=== PATIENT | female | born 1995 | race Caucasian/White ===

== ENCOUNTER → 2017-08-11 11:38 | Outpatient (CLI) | payer OTHER, MEDICAID, SELFPAY ==
[2017-08-11 12:15] LABS: Add Manual Diff / Slide Review NO; Basophils Percent Auto 0.5 % (0-2); Eosinophils Percent Auto 1.2 % (2-4); Hematocrit 37.7 % (36-46); Hemoglobin 12.8 g/dL (12.0-16.0); Lymphocytes Percent Auto 32.4 % (25-40); Mean Corpuscular Volume 88.1 fL (80-100); Monocytes Percent Auto 9.4 % (3-14); Neutrophils Absolute Auto 5300 /uL (3000-5900); Neutrophils Percent Auto 56.5 % (50-75); Platelet Count 280 X10^3/uL (150-400); Red Blood Cell Count 4.28 X10^6/uL (4.0-5.2); White Blood Cell Count 9.4 X10^3/uL (4.5-11.0)
[2017-08-11 12:18] LABS: Appearance Urine UA CLEAR; Bilirubin Urine UA NEGATIVE (NEGATIVE); Color Urine UA YELLOW; Glucose Urine UA NEGATIVE (Normal); Ketones Urine UA NEGATIVE (NEGATIVE); Leukocyte Esterase Urine UA NEGATIVE (NEGATIVE); Nitrite Urine UA Negative (Negative); Occult Blood Urine UA NEGATIVE (Negative); Protein Urine UA NEGATIVE (Negative); Urobilinogen Urine UA 0.2 E.U./dL (0.2); pH Urine UA 6.5 (4.5-8.0)
[2017-08-11 12:24] LABS: Glucose 87 mg/dL (70-100)
[2017-08-11 12:41] LABS: Hemoglobin A1C% w Est Avg Glu 4.8 % (4.0-6.0)
[2017-08-11 15:42] LABS: Hepatitis B Surface Antigen NEGATIVE s/c (NEGATIVE)
[2017-08-11 15:59] LABS: HIV 1 and 2 Antibody NEGATIVE (NEGATIVE); Hep C Virus Ab w/Reflex Quant NEGATIVE s/c (NEGATIVE)
[2017-08-12 13:49] LABS: HSV 2 IGG AB < 0.90 index (< 0.90)
[2017-08-18 13:59] LABS: Rapid Plasma Reagin NON-REACTIVE
== END ==
PROVIDERS: PCP Specialist
DX: Z3A.01 Less than 8 weeks gestation of pregnancy (principal)
CPT/HCPCS: 36415; 80055; 81003; 82947; 83036; 86695; 86696; 86703; 86787; 86803; 86850; 86900; 86901; 87086

== ENCOUNTER → 2017-10-05 15:09 | Outpatient (CLI) | payer OTHER, MEDICAID, SELFPAY ==
[2017-10-09 09:43] LABS: Sequential Screen 1st Trimeste FINAL PENDING
== END ==
PROVIDERS: Family Provider Specialist; PCP Specialist
DX: Z3A.12 12 weeks gestation of pregnancy (principal); Z36.0 Encounter for antenatal screening for chromosomal anomalies
CPT/HCPCS: 36415; 84163; 84702; 87086

== ENCOUNTER → 2017-10-31 13:53 | Outpatient (CLI) | payer OTHER, MEDICAID, SELFPAY ==
[2017-11-06 13:09] LABS: Sequential Screen 2nd Trimeste SCREEN NEGATIVE
== END ==
PROVIDERS: Family Provider Specialist
DX: Z34.82 Encounter for supervision of other normal pregnancy, second trimester (principal)
CPT/HCPCS: 36415; 86336

== ENCOUNTER → 2018-03-01 08:15 | Outpatient (CLI) | payer OTHER, MEDICAID, SELFPAY ==
[2018-03-01 10:06] LABS: Hematocrit 34.8 % (36-46); Hemoglobin 11.2 g/dL (12.0-16.0)
[2018-03-01 10:34] LABS: GTT (PREG) 1 Hour PP 50gm Dose 135 mg/dL (76-139)
== END ==
PROVIDERS: Visit Provider Specialist
DX: Z34.82 Encounter for supervision of other normal pregnancy, second trimester (principal)
CPT/HCPCS: 36415; 82950; 85014; 85018

== ENCOUNTER → 2018-03-13 13:54 | Outpatient (CLI) | payer OTHER, MEDICAID, SELFPAY ==
[2018-03-14 15:47] LABS: Strep Grp B PCR POS for Grp B Strep
== END ==
PROVIDERS: Family Provider Specialist
DX: Z34.93 Encounter for supervision of normal pregnancy, unspecified, third trimester (principal); Z3A.35 35 weeks gestation of pregnancy
CPT/HCPCS: 87653

== ENCOUNTER 2018-04-09 02:30 | Inpatient (IN) | payer OTHER, MEDICAID, SELFPAY ==
[2018-04-09] MEDS: PENICILLIN G POTASSIUM 5,000,000 UNIT in DEXTROSE 5% IN WATER 250 ML IV (03:00)
[2018-04-09] MEDS: LACTATED RINGERS 1,000 ML 100 ML IV ×3 (03:00→14:08)
[2018-04-09 03:38] VITALS: BP 121/83
[2018-04-09 03:45] LABS: Add Manual Diff / Slide Review NO; Basophils Absolute Auto 0 /uL (0-100); Basophils Percent Auto 0.3 % (0-2); Eosinophils Absolute Auto 200 /uL (0-450); Eosinophils Percent Auto 1.5 % (2-4); Hematocrit 35.7 % (36-46); Hemoglobin 11.4 g/dL (12.0-16.0); Lymphocytes Absolute Auto 3300 /uL (1100-4500); Lymphocytes Percent Auto 26.5 % (25-40); Mean Corpuscular HGB Conc 31.8 % (30-36); Mean Corpuscular Hemoglobin 26.3 PG (26-34); Mean Corpuscular Volume 82.8 fL (80-100); Monocytes Absolute Auto 1400 /uL (0-900); Monocytes Percent Auto 10.8 % (3-14); Neutrophils Absolute Auto 7700 /uL (1500-7000); Neutrophils Percent Auto 60.9 % (50-75); Platelet Count 190 X10^3/uL (150-400); Red Blood Cell Count 4.32 X10^6/uL (4.0-5.2); Red Cell Distribution Width 16.5 % (11.6-14.8); White Blood Cell Count 12.6 X10^3/uL (4.5-11.0)
--- NOTE | 2018-04-09 07:54 | PM.OBHP.1 ---
OB HPI Date/Time Date of admission: 04/09/18 Date Patient Seen: 04/09/18 Time Patient Seen: 07:55 History of Present Condition Chief complaint: admit for labor : 2 Para: 1 Estimated Date of Delivery: 04/13/18 Estimated Gestational Age (weeks): 39 Narrative: Darion Ely is a 22 year old female two para one who presents with spontaneous rupture of membranes and irregular contractions. Her past medical history, review of systems and antepartum record are detailed below. Indications Other reason(s) for admission: Spontaneous rupture membranes Early labor History of Present care: good care Dating criteria: LMP confirmed by 2nd trimester US Ultrasounds: normal 1st trimester US and normal mid trimester US Obstetrical complications: none Medical complications: none Narrative: The patient is a 22-year-old white female two para one with a history of a 37 and half week delivery in her last with a 36 hr labor. She delivered a 7 lb 9 oz infant. Her 1st infant has brain damage secondary to a swimming pool accident. The patient's weight went from 169 lb to 204 lb for 35 lb weight gain during the . Her blood pressures remained normotensive. Her urines remained negative for glucose and protein. She had adequate fundal growth. An ultrasound done on April 03 showed an estimated weight of 4000 g. the patient now presents with spontaneous rupture membranes an indolent contractions. Preadmission Labs Blood type: A (+) positive -: Antibody screen: negative, GBS status: positive, HBsAG: negative, HIV: negative, HSV 1: negative, HSV 2: positive and RPR/VDLR: negative -: Chlamydia screen: detected (Negative) and Gonorrhea screen: detected (Negative) -: Rubella: immune and Varicella: immune HCT: 34.5 HCAB: negative PAP: Normal Sequential screen: Negative Evaluation Evaluation Laboratory results: Laboratory Tests 04/09/18 04/09/18 03:00 03:00 WBC 12.6 H RBC 4.32 Hgb 11.4 L Hct 35.7 L MCV 82.8 MCH 26.3 MCHC 31.8 RDW 16.5 H Plt Count 190 Neut % (Auto) 60.9 Lymph % (Auto) 26.5 [place] % (Auto) 10.8 Eos % (Auto) 1.5 L Baso % (Auto) 0.3 Neut # (Auto) 7700 H Lymph # (Auto) 3300 [place] # (Auto) 1400 H Eos # (Auto) 200 Baso # (Auto) 0 Blood Type A Positive Antibody Screen Negative [facility] Medical History Vaginal delivery (Resolved 03/12/15) Social History Smoking Status: Never smoker Social History Smoking Status: Never smoker Meds Home Medications Medication Instructions Recorded Confirmed Type 1 tab PO DAILY 08/11/17 04/09/18 History vitamin,calcium,qaofadtu-awdp-zkkjr acid tablet nitrofurantoin macrocrystal 100 mg 100 mg PO BID #10 cap 10/20/17 04/09/18 Rx capsule albuterol sulfate HFA 90 1 puff INHALATION Q6H PRN #18 gram 04/03/18 04/09/18 Rx mcg/actuation aerosol inhaler Allergies Allergy/AdvReac Type Severity Reaction Status Date / Time No Known Drug Allergies Allergy Unknown Unverified 05/24/17 11:49 [NO KNOWN DRUG ALLERGIES] Review of Systems Review of Systems All systems reviewed & are unremarkable except as noted in HPI and below Exam Vital Signs (past 8 hours): - 04/09/18 03:38 Blood Pressure 121/83 Oxygen Delivery Method Room Air Const General: cooperative and healthy appearing [facility] Head: normal to inspection Ears: hearing grossly normal bilaterally Nose: external nose normal Face and sinus: normal facial exam Mouth: oral mucosae normal, lip normal, tongue normal and moist mucous membranes Teeth and gingiva: dentition normal Throat: posterior oropharynx normal Eyes General: appearance normal, both eyes and all related structures Neck Neck: normal visual inspection and full ROM Chest Chest: normal inspection of the chest and normal palpation of entire chest wall Breast inspection: normal inspection of the breasts and normal inspection of the axillae Breast Palpation: normal palpation of the breasts and normal palpation of the axillae Resp Effort & Inspection: normal respiratory effort Auscultation: clear to auscultation bilaterally Cardio Palpation: normal PMI Rate: regular rate Rhythm: regular rhythm Heart Sounds: S1 normal and S2 normal GI Inspection: normal to inspection Palpation: soft and no hepatosplenomegaly Percussion: normal to percussion Auscultation: normal bowel sounds External Female Exam: external appearance normal and normal appearance of the urethra Speculum Exam - Vagina: normal appearance of the vagina and normal vaginal discharge Manual OB Exam: dilated 2, effaced 75% and station -2 Uterus Location (Fundal Height): 40 Presentation: vertex Estimated Weight (lbs): 9 Amniotic Fluid: clear Back/Spine/Pelvis Thoracic/Lumbar Spine: thoracic and lumbar spine normal to inspection Skin General: no rashes or lesions noted Neuro General: alert, oriented x3, tone normal and moves all extremities Cognition: normal cognition Speech: speech normal Gait: normal gait Motor: muscle tone normal throughout Sensory Exam: no sensory deficits noted Extrem General: normal to inspection and normal exam except as noted Psych Appearance: grossly normal and well kempt Mental Status: mental status grossly normal Speech and Movement: speech and movement normal Objective Labs Result Diagrams: 04/09/18 03:00 Labs: Laboratory Results - last 24 hr 04/09/18 04/09/18 03:00 03:00 WBC 12.6 H RBC 4.32 Hgb 11.4 L Hct 35.7 L MCV 82.8 MCH 26.3 MCHC 31.8 RDW 16.5 H Plt Count 190 Neut % (Auto) 60.9 Lymph % (Auto) 26.5 [place] % (Auto) 10.8 Eos % (Auto) 1.5 L Baso % (Auto) 0.3 Neut # (Auto) 7700 H Lymph # (Auto) 3300 [place] # (Auto) 1400 H Eos # (Auto) 200 Baso # (Auto) 0 Blood Type A Positive Antibody Screen Negative Assessment and Plan (1) Term : Onset Date: ~04/09/18 Current visit: Yes Status: Acute Pitocin augmentation of labor (2) Rupture, membranes, premature: Onset Date: ~04/09/18 Current visit: Yes Status: Acute Pitocin induction of labor
[2018-04-09] MEDS: LACTATED RINGERS 1,000 ML 1000 ML IV (07:58)
[2018-04-09] MEDS: OXYTOCIN PREMIX 30 UNIT/500 ML PLAST..BAG IV (07:59)
[2018-04-09] MEDS: PENICILLIN G POTASSIUM 3,000,000 UNIT/50 ML FROZ.PIGGY 100 UNIT IV ×3 (08:01→15:56)
--- NOTE | 2018-04-09 08:08 | P.HPOB_ITS ---
OB HPI Date/Time Date of admission: 04/09/18 Date Patient Seen: 04/09/18 Time Patient Seen: 07:55 History of Present Condition Chief complaint: admit for labor : 2 Para: 1 Estimated Date of Delivery: 04/13/18 Estimated Gestational Age (weeks): 39 Narrative: Darion Ely is a 22 year old female two para one who presents with spontaneous rupture of membranes and irregular contractions. Her past medical history, review of systems and antepartum record are detailed below. Indications Other reason(s) for admission: Spontaneous rupture membranes Early labor History of Present care: good care Dating criteria: LMP confirmed by 2nd trimester US Ultrasounds: normal 1st trimester US and normal mid trimester US Obstetrical complications: none Medical complications: none Narrative: The patient is a 22-year-old white female two para one with a history of a 37 and half week delivery in her last with a 36 hr labor. She delivered a 7 lb 9 oz infant. Her 1st infant has brain damage secondary to a swimming pool accident. The patient's weight went from 169 lb to 204 lb for 35 lb weight gain during the . Her blood pressures remained normotensive. Her urines remained negative for glucose and protein. She had adequate fundal growth. An ultrasound done on April 03 showed an estimated weight of 4000 g. the patient now presents with spontaneous rupture membranes an indolent contractions. Preadmission Labs Blood type: A (+) positive -: Antibody screen: negative, GBS status: positive, HBsAG: negative, HIV: negative, HSV 1: negative, HSV 2: positive and RPR/VDLR: negative -: Chlamydia screen: detected (Negative) and Gonorrhea screen: detected (Negative) -: Rubella: immune and Varicella: immune HCT: 34.5 HCAB: negative PAP: Normal Sequential screen: Negative Evaluation Evaluation Laboratory results: Laboratory Tests 04/09/18 04/09/18 03:00 03:00 WBC 12.6 H RBC 4.32 Hgb 11.4 L Hct 35.7 L MCV 82.8 MCH 26.3 MCHC 31.8 RDW 16.5 H Plt Count 190 Neut % (Auto) 60.9 Lymph % (Auto) 26.5 [place] % (Auto) 10.8 Eos % (Auto) 1.5 L Baso % (Auto) 0.3 Neut # (Auto) 7700 H Lymph # (Auto) 3300 [place] # (Auto) 1400 H Eos # (Auto) 200 Baso # (Auto) 0 Blood Type A Positive Antibody Screen Negative [facility] Medical History Vaginal delivery (Resolved 03/12/15) Social History Smoking Status: Never smoker Social History Smoking Status: Never smoker Meds Home Medications Medication Instructions Recorded Confirmed Type 1 tab PO DAILY 08/11/17 04/09/18 History vitamin,calcium,xbqpducs-tyfh-hpzkx acid tablet nitrofurantoin macrocrystal 100 mg 100 mg PO BID #10 cap 10/20/17 04/09/18 Rx capsule albuterol sulfate HFA 90 1 puff INHALATION Q6H PRN #18 gram 04/03/18 04/09/18 Rx mcg/actuation aerosol inhaler Allergies Allergy/AdvReac Type Severity Reaction Status Date / Time No Known Drug Allergies Allergy Unknown Unverified 05/24/17 11:49 [NO KNOWN DRUG ALLERGIES] Review of Systems Review of Systems All systems reviewed & are unremarkable except as noted in HPI and below Exam Vital Signs (past 8 hours): - 04/09/18 03:38 Blood Pressure 121/83 Oxygen Delivery Method Room Air Const General: cooperative and healthy appearing [facility] Head: normal to inspection Ears: hearing grossly normal bilaterally Nose: external nose normal Face and sinus: normal facial exam Mouth: oral mucosae normal, lip normal, tongue normal and moist mucous membranes Teeth and gingiva: dentition normal Throat: posterior oropharynx normal Eyes General: appearance normal, both eyes and all related structures Neck Neck: normal visual inspection and full ROM Chest Chest: normal inspection of the chest and normal palpation of entire chest wall Breast inspection: normal inspection of the breasts and normal inspection of the axillae Breast Palpation: normal palpation of the breasts and normal palpation of the axillae Resp Effort & Inspection: normal respiratory effort Auscultation: clear to auscultation bilaterally Cardio Palpation: normal PMI Rate: regular rate Rhythm: regular rhythm Heart Sounds: S1 normal and S2 normal GI Inspection: normal to inspection Palpation: soft and no hepatosplenomegaly Percussion: normal to percussion Auscultation: normal bowel sounds External Female Exam: external appearance normal and normal appearance of the urethra Speculum Exam - Vagina: normal appearance of the vagina and normal vaginal discharge Manual OB Exam: dilated 2, effaced 75% and station -2 Uterus Location (Fundal Height): 40 Presentation: vertex Estimated Weight (lbs): 9 Amniotic Fluid: clear Back/Spine/Pelvis Thoracic/Lumbar Spine: thoracic and lumbar spine normal to inspection Skin General: no rashes or lesions noted Neuro General: alert, oriented x3, tone normal and moves all extremities Cognition: normal cognition Speech: speech normal Gait: normal gait Motor: muscle tone normal throughout Sensory Exam: no sensory deficits noted Extrem General: normal to inspection and normal exam except as noted Psych Appearance: grossly normal and well kempt Mental Status: mental status grossly normal Speech and Movement: speech and movement normal Objective Labs Result Diagrams: 04/09/18 03:00 Labs: Laboratory Results - last 24 hr 04/09/18 04/09/18 03:00 03:00 WBC 12.6 H RBC 4.32 Hgb 11.4 L Hct 35.7 L MCV 82.8 MCH 26.3 MCHC 31.8 RDW 16.5 H Plt Count 190 Neut % (Auto) 60.9 Lymph % (Auto) 26.5 [place] % (Auto) 10.8 Eos % (Auto) 1.5 L Baso % (Auto) 0.3 Neut # (Auto) 7700 H Lymph # (Auto) 3300 [place] # (Auto) 1400 H Eos # (Auto) 200 Baso # (Auto) 0 Blood Type A Positive Antibody Screen Negative Assessment and Plan (1) Term : Onset Date: ~04/09/18 Current visit: Yes Status: Acute Pitocin augmentation of labor (2) Rupture, membranes, premature: Onset Date: ~04/09/18 Current visit: Yes Status: Acute Pitocin induction of labor
[2018-04-09] MEDS: CALCIUM CARBONATE 500 MG TAB PO ×4 (10:52→15:52)
--- NOTE | 2018-04-09 17:15 | PM.OBPRVD ---
Events: Premature Rupture of Membrane Delivery date: 04/09/18 Intrapartal events: None Delivery augmentation: pitocin Delivery monitor: external FHT and external uterine Route of delivery: L&D Laceration Description: None Anesthesia type: Epidural Complications: n one Narrative: the patient is a22 who presented with SROM at 0230 hrs. Pitocin was begun for augmentation. Epidural was placed at 5 cm. Pt made good progess to complete and pushed with 2 contractions and delivered a liveborn male with scores of 8/9/ Placenta dilivered spontaneously/ Cord 3 vessels. NO cervical, vaginal, perineal or periuthreal tears. EBL 250 Plan for aftercare: routine
[2018-04-09] MEDS: IBUPROFEN 600 MG TABLET PO ×2 (17:35→21:42)
[2018-04-10] MEDS: IBUPROFEN 600 MG TABLET PO ×3 (03:40→17:24)
[2018-04-10 07:34] LABS: Hematocrit 32.2 % (36-46); Hemoglobin 10.5 g/dL (12.0-16.0)
--- NOTE | 2018-04-10 07:43 | PM.OBDS.1 ---
Discharge Providers Date of admission: 04/09/18 02:30 Primary care physician: Odilon Knott MD Consults: 04/09/18 17:33 Consult to Email Engineer Routine Comment: Discharge provider: Odilon Knott MD Discharge Date: 04/10/18 Summary Date Patient Seen: 04/10/18 Time Patient Seen: 07:44 Hospital Course: Patient is a 22-year-old white female two now para two with uneventful antepartum course. Patient presented with spontaneous rupture of membranes on the 09 of April. Pitocin was begun. Epidural was placed. The patient made good progress to complete and was delivered spontaneously of an 8 lb 14 oz live-born male infant with scores of nine at 1 min nine at 5 min in good condition. There were no cervical vaginal or perineal tears. Post delivery the patient has done well. She remains afebrile stable vital signs and has been progressively element and ambulated. She will be discharged home for follow-up in four weeks Peripartum Data Delivery Method: Natural Vaginal Laceration description: None complications: none Discharge Diagnosis (1) Term : Status: Acute (2) Rupture, membranes, premature: Status: Acute Status at Discharge Cognitive/behavioral status at discharge: Normal Functional status at discharge: independent ambulation Overall status at discharge: patient is back to baseline Time Spent with Patient Total time spent providing and/or coordinating discharge services: Less than 30 minutes Objective Labs Result Diagrams: 04/10/18 07:00 Labs: Laboratory Results - last 24 hr 04/10/18 07:00 Hgb 10.5 L Hct 32.2 L Discharge Plan Discharge Plan Patient Disposition: Home Discharge Med Rec/Prescriptions Prescriptions: New Dermoplast (with menthol) 20-0.5 % Aerosol 1 spray topical Q1HR PRN (Reason: perineal pain) Qty: 1 RF: 0 oxycodone-acetaminophen 5-325 mg Tablet 1 tab PO Q4HR Qty: 20 RF: 0 ibuprofen 600 mg Tablet 600 mg PO Q6HR PRN (Reason: Pain, Mild (1-3)) Qty: 20 RF: 0 Oxr-H-Ghhall Cream 1 applic topical PRN PRN (Reason: Tenderness) Qty: 1 RF: 0 Continued nitrofurantoin macrocrystal 100 mg capsule 100 mg PO BID Qty: 10 RF: 0 prenat.vits,tor,ghs-qmnu-ewgqs [ Vitamin] tablet 1 tab PO DAILY RF: 0 albuterol sulfate 90 mcg/actuation HFA aerosol inhaler 1 puff INHALATION Q6H PRN (Reason: shortness of breath or wheezing) Qty: 18 RF: 1 Follow up/Referrals: Odilon Knott MD [Primary Care Provider] - Provider Discharge Instructions Diet: Diet as Tolerated Activity: Up ad yue Skin/Wound/Dressing Care Skin care: Benzocaine spray Report to your healthcare provider any signs of infection, such as:: chills, fever, increased pain, unusual drainage and unusual redness Dressing: None Other wound treatment: None Discharge Data Primary Care Provider: Odilon Knott Attending Provider: Rosa M Dias Admit Date/Time: 04/09/18 02:30
--- NOTE | 2018-04-10 07:47 | P.DS_ITS ---
Discharge Providers Date of admission: 04/09/18 02:30 Primary care physician: Odilon Knott MD Consults: 04/09/18 17:33 Consult to Adult Education Professional Routine Comment: Discharge provider: Odilon Knott MD Discharge Date: 04/10/18 Summary Date Patient Seen: 04/10/18 Time Patient Seen: 07:44 Hospital Course: Patient is a 22-year-old white female two now para two with uneventful antepartum course. Patient presented with spontaneous rupture of membranes on the 09 of April. Pitocin was begun. Epidural was placed. The patient made good progress to complete and was delivered spontaneously of an 8 lb 14 oz live-born male infant with scores of nine at 1 min nine at 5 min in good condition. There were no cervical vaginal or perineal tears. Post delivery the patient has done well. She remains afebrile stable vital signs and has been progressively element and ambulated. She will be discharged home for follow-up in four weeks Peripartum Data Delivery Method: Natural Vaginal Laceration description: None complications: none Discharge Diagnosis (1) Term : Status: Acute (2) Rupture, membranes, premature: Status: Acute Status at Discharge Cognitive/behavioral status at discharge: Normal Functional status at discharge: independent ambulation Overall status at discharge: patient is back to baseline Time Spent with Patient Total time spent providing and/or coordinating discharge services: Less than 30 minutes Objective Labs Result Diagrams: 04/10/18 07:00 Labs: Laboratory Results - last 24 hr 04/10/18 07:00 Hgb 10.5 L Hct 32.2 L Discharge Plan Discharge Plan Patient Disposition: Home Discharge Med Rec/Prescriptions Prescriptions: New Dermoplast (with menthol) 20-0.5 % Aerosol 1 spray topical Q1HR PRN (Reason: perineal pain) Qty: 1 RF: 0 oxycodone-acetaminophen 5-325 mg Tablet 1 tab PO Q4HR Qty: 20 RF: 0 ibuprofen 600 mg Tablet 600 mg PO Q6HR PRN (Reason: Pain, Mild (1-3)) Qty: 20 RF: 0 Tnp-D-Xdgrxn Cream 1 applic topical PRN PRN (Reason: Tenderness) Qty: 1 RF: 0 Continued nitrofurantoin macrocrystal 100 mg capsule 100 mg PO BID Qty: 10 RF: 0 prenat.vits,tor,pru-kqyy-qjwzk [ Vitamin] tablet 1 tab PO DAILY RF: 0 albuterol sulfate 90 mcg/actuation HFA aerosol inhaler 1 puff INHALATION Q6H PRN (Reason: shortness of breath or wheezing) Qty: 18 RF: 1 Follow up/Referrals: Odilon Knott MD [Primary Care Provider] - Provider Discharge Instructions Diet: Diet as Tolerated Activity: Up ad yue Skin/Wound/Dressing Care Skin care: Benzocaine spray Report to your healthcare provider any signs of infection, such as:: chills, fever, increased pain, unusual drainage and unusual redness Dressing: None Other wound treatment: None Discharge Data Primary Care Provider: Odilon Knott Attending Provider: Rosa M Dias Admit Date/Time: 04/09/18 02:30
[2018-04-10 13:30] VITALS: BP 103/56; PULSE 78; RESP 18; TEMP 36.8
[2018-04-10] MEDS: OXYCODONE/ACETAMINOPHEN 5/325 TABLET 1 TAB PO (18:02)
== END 2018-04-10 18:25 | disposition home or self-care (01) | DRG 560 ==
PROVIDERS: Admitting Provider Obstetrics & Gynecology; Family Provider Specialist; Visit Provider Obstetrics & Gynecology
DX: O42.02 Full-term premature rupture of membranes, onset of labor within 24 hours of rupture (principal); O99.824 Streptococcus B carrier state complicating childbirth; Z3A.39 39 weeks gestation of pregnancy; Z37.0 Single live birth
CPT/HCPCS: 01967; 36415; 59050; 59409; 85014; 85018; 85025; 86850; 86900; 86901; G0379; J2540; J2590; J3010

== ENCOUNTER 2020-01-14 07:29 | Outpatient (RCR) | payer OTHER, MEDICAID, SELFPAY ==
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
== END 2020-02-12 14:18 ==
LOC: PHYS 07:29
PROVIDERS: PCP Family Medicine; Referring Provider Family Medicine; Visit Provider Family Medicine
DX: S29.012A Strain of muscle and tendon of back wall of thorax, initial encounter (principal); R53.1 Weakness; R29.3 Abnormal posture; M54.6 Pain in thoracic spine; M54.2 Cervicalgia; R26.2 Difficulty in walking, not elsewhere classified
CPT/HCPCS: 97162; 97530

== ENCOUNTER → 2020-09-04 13:37 | Outpatient (CLI) | payer OTHER, MEDICAID, SELFPAY ==
--- NOTE | 2020-09-04 13:39 | DI.RAD.S_ITS ---
PROCEDURE: XR CERVICAL SPINE 2V OR 3V INDICATIONS: neck pain TECHNIQUE: 3 view(s) of the cervical spine were acquired. COMPARISON: None. FINDINGS: Bones: No fractures or dislocations to the T1 level. The lateral masses of C1 appear intact on the odontoid view. No suspicious bony lesions. 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 Soft tissues: No prevertebral soft tissue swelling. 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 This can predispose to neck pain. No trauma found. Dictated by: Nima Schmidt M.D. on 09/04/2020 at 14:43 Approved by: Nima Schmidt M.D. on 09/04/2020 at 14:44
== END ==
PROVIDERS: PCP Family Medicine; Referring Provider Family Medicine; Visit Provider Family Medicine
DX: G89.29 Other chronic pain (principal); M54.2 Cervicalgia; M62.838 Other muscle spasm; M43.22 Fusion of spine, cervical region
CPT/HCPCS: 72040